=== PATIENT | female | born 1965 ===

== ENCOUNTER 2017-07-06 02:23 | Emergency (ER) | payer BC, SELFPAY ==
[2017-07-06] MEDS ORDERED: Ketorolac Tromethamine 60 MG/2 ML VIAL ONE (02:55)
[2017-07-06] MEDS ORDERED: HYDROcodone/Acetaminophen 10/325 mg Tablet ONE (02:55)
== END 2017-07-06 03:05 | disposition home or self-care (01) ==
LOC: BURERS 02:23
DX: M54.5 Low back pain (principal); R60.0 Localized edema; E03.9 Hypothyroidism, unspecified; F17.210 Nicotine dependence, cigarettes, uncomplicated; Z85.828 Personal history of other malignant neoplasm of skin
CPT/HCPCS: 96372; J1885